=== PATIENT | female | born 1975 | race Caucasian/White ===

== ENCOUNTER 2020-06-16 15:15 | Emergency (ER) | payer OTHER ==
[2020-06-16 15:24] VITALS: TEMP 98.4
--- NOTE | 2020-06-16 15:29 | ED ---
General Adult HPI - General Chief complaint: Alcohol Stated complaint: ETOH Time Seen by Provider: 06/16/20 15:17 Source: patient, EMS, RN notes reviewed, old records reviewed Limitations: no limitations - History of Present Illness Initial comments: 44-year-old female presents from [facility] for evaluation of alcohol intoxication. Patient had alcohol of 280 in the ED and was sent to the emergency department for evaluation and medical clearance. Patient is alert and oriented, she is intoxicated but has no complaints. She states she had some minor injuries over the past several days with no pain complaints. She admits to drinking a fifth of vodka this morning. No vomiting. - Related Data Allergies Allergy/AdvReac Type Severity Reaction Status Date / Time No Known Allergies Allergy Verified 06/16/20 15:25 Review of Systems ROS Statement: Those systems with pertinent positive or pertinent negative responses have been documented in the HPI. ROS Other: All systems not noted in ROS Statement are negative. Past Medical History Past Medical History: GERD/Reflux, Hypertension History of Any Multi-Drug Resistant Organisms: None Reported Past Surgical History: Cholecystectomy, Orthopedic Surgery Past Psychological History: Anxiety, Depression Smoking Status: Current every day smoker Past Alcohol Use History: Heavy Past Drug Use History: Marijuana General Exam Limitations: no limitations General appearance: alert, in no apparent distress, appears intoxicated Head exam: Present: atraumatic, normocephalic Eye exam: Present: normal appearance, PERRL ENT exam: Present: normal exam Neck exam: Present: normal inspection. Absent: tenderness, meningismus Respiratory exam: Present: normal lung sounds bilaterally. Absent: respiratory distress, wheezes Cardiovascular Exam: Present: regular rate, normal rhythm GI/Abdominal exam: Present: soft. Absent: distended, tenderness Extremities exam: Present: normal inspection, normal capillary refill. Absent: pedal edema Neurological exam: Present: alert, oriented X3, CN II-XII intact, motor sensory deficit, other (No ataxia) Psychiatric exam: Absent: suicidal ideation Skin exam: Present: warm, dry Course Vital Signs 06/16/20 15:16 Temperature 98.4 F Pulse Rate 86 Respiratory 18 Rate Blood Pressure 144/96 O2 Sat by Pulse 97 Oximetry - Reevaluation(s) Reevaluation #1: 06/16/20 16:29 able to return to the bathroom with steady gait. She has no limb ataxia. Reevaluation #2: 06/16/20 16:29 Patient has no complaints. Medical Decision Making - Medical Decision Making 44-year-old female with alcohol intoxication, attempting to check into rehabilitation. There was concern with falls, possible head injury. Head CT is obtained, negative for intracranial hemorrhage or mass effect. C-spine negative for fracture subluxation. She does have a high elevated alcohol but is only mildly intoxicated. She has a steady gait. She will be discharged back to the rehabilitation Center. Disposition Clinical Impression: Alcoholic intoxication Disposition: OTHER INSTITUTION NOT DEFINED Condition: Stable Is patient prescribed a controlled substance at d/c from ED?: No Referrals: None,Stated [Primary Care Provider] - 1-2 days Rex Diana MD [REFERRING] - 1-2 days Time of Disposition: 16:30 - Out of Hospital Transfer - Req. Specs Out of Hospital Transfer - Requested Specifics: Other Non-Acute (Transferred back to [facility])
--- NOTE | 2020-06-16 16:21 | CT ---
EXAMINATION TYPE: CT brain erich randall con DATE OF EXAM: 06/16/2020 COMPARISON: NONE HISTORY: Fall trauma with headache and neck pain CT DLP: 2113 mGycm. Automated Exposure Control for Dose Reduction was Utilized. TECHNIQUE: CT scan of the head and cervical spine are performed without contrast. FINDINGS: There is no acute intracranial hemorrhage or midline shift identified. Mild ventricular a nd sulcal prominence. Mild low-attenuation in the periventricular white matter. Mild to moderate muc osal thickening of left greater than right maxillary sinuses and mild to moderate mucosal thickening ethmoid sinuses bilaterally right greater than left. Near complete opacification of the right frontal sinus. The globes are intact bilaterally. Calvarium is intact. Cervical spine is visualized in its entirety from C1 through upper thoracic levels and demonstrates l evoconvex scoliosis centered upper thoracic spine without evidence of acute fracture or dislocation. Prevertebral soft tissue appears within normal limits. The C1-C2 articulation is within normal limi ts on the coronal images. Vertebral body heights and disc space heights are maintained. Spinal canal is preserved. Axial images show multilevel predominantly left-sided uncovertebral facet degenerative changes. Thyroid gland is within normal limits. Lung apices show no pneumothorax. IMPRESSION: 1. There is no acute fracture or dislocation evident in the cervical spine. 2. No acute intracranial hemorrhage or midline shift is seen.
[2020-06-16 16:50] VITALS: BP 138/90; PULSE 91; RESP 16
== END 2020-06-16 16:48 | disposition other institution (70) ==
LOC: EC 15:15
DX: F10.129 Alcohol abuse with intoxication, unspecified (principal); Y90.9 Presence of alcohol in blood, level not specified; F17.200 Nicotine dependence, unspecified, uncomplicated
CPT/HCPCS: 70450; 72125; 82075; 99285

== ENCOUNTER 2020-09-02 13:50 | Inpatient (IN) | payer OTHER ==
[2020-09-02] MEDS ORDERED: SODIUM CHLORIDE 0.9% 1,000 ML IV STA (14:08)
[2020-09-02] MEDS ORDERED: THIAMINE 200 MG in SODIUM CHLORIDE 0.9% 100 ML IVPB STA (14:10)
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
[2020-09-02 14:41] LABS: HCT 46.8 % (34.0-46.0); HGB 15.5 gm/dL (11.4-16.0); MCH 30.5 pg (25.0-35.0); MCV 92.3 fL (80.0-100.0); Mean Platelet Volume 13.7; Platelet Count 132 k/uL (150-450); RBC 5.07 m/uL (3.80-5.40); RDW 15.9 % (11.5-15.5); WBC 5.1 k/uL (3.8-10.6)
[2020-09-02 15:25] LABS: Eosinophils # (M) 0.05 k/uL (0-0.7); Lymphocytes # (M) 2.65 k/uL (1.0-4.8); Monocytes # (M) 0.51 k/uL (0-1.0); Neutrophils # (M) 1.89 k/uL (1.3-7.7); Neutrophils % (M) 37 %; Nucleated Red Blood Cells 0 /100 WBC (0-0); Total Cells Counted 100
[2020-09-02 15:26] LABS: Anisocytosis (M) Present; Poikilocytosis (M) Present
[2020-09-02 16:18] LABS: ALT 65 U/L (4-34); AST 173 U/L (14-36); African American GFR (CKD) >90 (>60 ml/min/1.73 sqM); Albumin 4.2 g/dL (3.5-5.0); Alkaline Phosphatase 105 U/L (38-126); Anion Gap 12 mmol/L; Blood Urea Nitrogen 6 mg/dL (7-17); Calcium 7.8 mg/dL (8.4-10.2); Carbon Dioxide 25 mmol/L (22-30); Chloride 106 mmol/L (98-107); Glucose 104 mg/dL (74-99); Non-African American GFR(CKD) >90 (>60 ml/min/1.73 sqM); Potassium 3.4 mmol/L (3.5-5.1); Sodium 143 mmol/L (137-145); Total Bilirubin 0.6 mg/dL (0.2-1.3); Total Protein 7.7 g/dL (6.3-8.2)
[2020-09-02 16:30] LABS: Alcohol 402 mg/dL
[2020-09-02 16:37] LABS: Lipase 574 U/L (23-300)
[2020-09-02] MEDS ORDERED: NALOXONE 0.4 MG/ML 1 ML VIAL IV PRN (17:40)
[2020-09-02] MEDS ORDERED: ONDANSETRON 4 MG/2 ML VIAL IVP PRN (17:40)
[2020-09-02] MEDS ORDERED: LORazepam 2 MG/ML INJ IV PRN (17:41)
[2020-09-02] MEDS: LORazepam 2 MG/ML INJ IV PRN ×2 (20:20→22:38)
[2020-09-03] MEDS: LORazepam 2 MG/ML INJ IV PRN ×5 (03:45→22:05)
[2020-09-03] MEDS: THIAMINE 100 MG TAB PO SCH ×2 (08:58→17:58)
[2020-09-03 13:29] LABS: ALT 56 U/L (4-34); AST 111 U/L (14-36); African American GFR (CKD) >90 (>60 ml/min/1.73 sqM); Albumin 4.1 g/dL (3.5-5.0); Albumin/Globulin Ratio 1.2; Alcohol <10 mg/dL; Alkaline Phosphatase 96 U/L (38-126); Anion Gap 5 mmol/L; Bilirubin,Unconjugated 1.5 mg/dL (0.0-1.1); Blood Urea Nitrogen 7 mg/dL (7-17); Calcium 8.9 mg/dL (8.4-10.2); Carbon Dioxide 30 mmol/L (22-30); Chloride 98 mmol/L (98-107); Globulin 3.4 g/dL; Glucose 106 mg/dL (74-99); Lipase 188 U/L (23-300); Non-African American GFR(CKD) >90 (>60 ml/min/1.73 sqM); Potassium 3.8 mmol/L (3.5-5.1); Sodium 133 mmol/L (137-145); Total Bilirubin 1.5 mg/dL (0.2-1.3); Total Protein 7.5 g/dL (6.3-8.2)
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
[2020-09-04] MEDS: CITALOPRAM HYDROBROMIDE 20 MG TAB PO SCH (07:29)
[2020-09-04] MEDS: THIAMINE 100 MG TAB PO SCH ×2 (07:30→20:40)
[2020-09-04] MEDS: amLODIPine 10 MG TAB PO SCH (07:30)
[2020-09-04] MEDS: PANTOPRAZOLE 40 MG TABLET PO SCH (07:30)
[2020-09-04 09:48] LABS: African American GFR (CKD) 128.5 (60.0-200.0); Anion Gap 8.9 mmol/L (4.00-12.00); BUN/Creat Ratio 13.33 Ratio (12.00-20.00); Calcium 9.1 mg/dL (8.7-10.3); Carbon Dioxide 25.1 mmol/L (21.6-31.8); Non-African American GFR(CKD) 110.9 (60.0-200.0); Potassium 3.3 mmol/L (3.5-5.5)
[2020-09-04] MEDS: LORazepam 2 MG/ML INJ IV PRN ×2 (10:04→14:32)
[2020-09-04 10:17] LABS: Basophils % (A) 1 %; Eosinophils # (A) 0.3 k/uL (0-0.7); Eosinophils % (A) 6 %; HCT 46.4 % (34.0-46.0); HGB 15.3 gm/dL (11.4-16.0); Lymphocytes # (A) 1.4 k/uL (1.0-4.8); Lymphocytes % (A) 33 %; MCH 30.2 pg (25.0-35.0); MCHC 32.9 g/dL (31.0-37.0); MCV 91.9 fL (80.0-100.0); Mean Platelet Volume 8.7; Monocytes # (A) 0.3 k/uL (0-1.0); Monocytes % (A) 6 %; Neutrophils # (A) 2.2 k/uL (1.3-7.7); Neutrophils % (A) 52 %; Platelet Count 114 k/uL (150-450); RBC 5.05 m/uL (3.80-5.40); RDW 15.2 % (11.5-15.5); WBC 4.3 k/uL (3.8-10.6)
[2020-09-04] MEDS ORDERED: hydrALAZINE HCL 20 MG/ML 1 ML VIAL IVP PRN (13:49)
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
[2020-09-05] MEDS: LORazepam 2 MG/ML INJ IV PRN (00:56)
[2020-09-05] MEDS: PANTOPRAZOLE 40 MG TABLET PO SCH (07:43)
[2020-09-05] MEDS: CITALOPRAM HYDROBROMIDE 20 MG TAB PO SCH (07:43)
[2020-09-05] MEDS: THIAMINE 100 MG TAB PO SCH (07:43)
[2020-09-05] MEDS: amLODIPine 10 MG TAB PO SCH (07:43)
[2020-09-05 09:31] LABS: African American GFR (CKD) 136.4 (60.0-200.0); Anion Gap 9.9 mmol/L (4.00-12.00); Calcium 9.3 mg/dL (8.7-10.3); Carbon Dioxide 23.1 mmol/L (21.6-31.8); Non-African American GFR(CKD) 117.7 (60.0-200.0); Potassium 3.6 mmol/L (3.5-5.5)
[2020-09-05 11:51] VITALS: BP 139/93; PULSE 87; RESP 16; TEMP 97.6
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
== END 2020-09-05 14:05 | DRG 896 ==
LOC: EC 13:50 → 5NMEDONC 18:26 → OBSVTOIN 09-03 14:36 → MERGE 09-03 14:36
PROVIDERS: ADMIT Internal Medicine; ATTEND Internal Medicine
DX: F10.120 Alcohol abuse with intoxication, uncomplicated (principal); K85.20 Alcohol induced acute pancreatitis without necrosis or infection; K70.10 Alcoholic hepatitis without ascites; F10.130 Alcohol abuse with withdrawal, uncomplicated; Z20.822 Contact with and (suspected) exposure to COVID-19; E87.6 Hypokalemia; I10 Essential (primary) hypertension; F32.9 Major depressive disorder, single episode, unspecified; S00.12XA Contusion of left eyelid and periocular area, initial encounter; K21.9 Gastro-esophageal reflux disease without esophagitis; F41.9 Anxiety disorder, unspecified; F17.200 Nicotine dependence, unspecified, uncomplicated; Y04.0XXA Assault by unarmed brawl or fight, initial encounter; Y90.8 Blood alcohol level of 240 mg/100 ml or more; Z79.899 Other long term (current) drug therapy; Z90.49 Acquired absence of other specified parts of digestive tract
CPT/HCPCS: 36415; 80048; 80053; 80076; 80320; 83690; 83735; 85025; 87635; 96361; 96365; 96375; 99285